=== PATIENT | female | born 1960 | race Caucasian/White ===

== ENCOUNTER 2021-09-12 09:30 | Outpatient (CLI) | payer BC | END 2021-09-12 09:31 | disposition home or self-care (01) | LOC: CSHMAMMO 09:30 | PROVIDERS: ATTEND Obstetrics & Gynecology | DX: Z12.31 Encounter for screening mammogram for malignant neoplasm of breast (principal); Z91.89 Other specified personal risk factors, not elsewhere classified | CPT/HCPCS: 77063; 77067 ==

== ENCOUNTER 2022-07-14 15:47 | Outpatient (CLI) | payer BC | END 2022-07-14 15:48 | disposition home or self-care (01) | LOC: CSHRAD 15:47 | PROVIDERS: ATTEND Internal Medicine Rheumatology | DX: M25.571 Pain in right ankle and joints of right foot (principal) ==

== ENCOUNTER 2022-07-29 15:16 | Outpatient (CLI) | payer BC | END 2022-07-29 15:17 | disposition home or self-care (01) | LOC: CSHULT 15:16 | PROVIDERS: ATTEND Internal Medicine Rheumatology | DX: R60.0 Localized edema (principal) ==

== ENCOUNTER 2022-09-18 09:50 | Outpatient (CLI) | payer BC | END 2022-09-18 09:51 | disposition home or self-care (01) | LOC: CSHMAMMO 09:50 | PROVIDERS: ATTEND Obstetrics & Gynecology | DX: Z12.31 Encounter for screening mammogram for malignant neoplasm of breast (principal); Z91.89 Other specified personal risk factors, not elsewhere classified | CPT/HCPCS: 77063; 77067 ==

== ENCOUNTER 2024-10-30 09:31 | Outpatient (CLI) | payer MEDICARE, BC | END 2024-10-30 09:32 | disposition home or self-care (01) | LOC: CSHMAMMO 09:31 | PROVIDERS: ATTEND Obstetrics & Gynecology | DX: Z12.31 Encounter for screening mammogram for malignant neoplasm of breast (principal); Z91.89 Other specified personal risk factors, not elsewhere classified | CPT/HCPCS: 77063; 77067 ==